=== PATIENT | male | born 1985 | race Asian ===

== ENCOUNTER 2016-12-03 14:26 | Emergency (ER) | payer OTHER ==
[2016-12-03] MEDS ORDERED: ACETAMINOPHEN 325 MG TABLET PO STA (15:11)
[2016-12-03] MEDS ORDERED: IBUPROFEN 400 MG TABLET PO STA (15:11)
[2016-12-03] MEDS ORDERED: IBUPROFEN 400 MG TABLET PO ONE (15:12)
[2016-12-03] MEDS ORDERED: ACETAMINOPHEN 325 MG TABLET PO ONE (15:12)
== END 2016-12-03 16:01 | disposition home or self-care (01) ==
DX: S30.0XXA Contusion of lower back and pelvis, initial encounter (principal); V00.311A Fall from snowboard, initial encounter; Y93.23 Activity, snow (alpine) (downhill) skiing, snowboarding, sledding, tobogganing and snow tubing; Y92.830 Public park as the place of occurrence of the external cause
CPT/HCPCS: 72100; 72170; 99282; 99283; A9270

== ENCOUNTER 2017-05-12 07:14 | Emergency (ER) | payer OTHER ==
--- NOTE | 2017-05-12 07:51 | ED Physician Documentation ---
PD HPI ABD PAIN - Stated complaint Stated Complaint: ABD PAIN - Chief complaint Chief Complaint: Abd Pain - History obtained from History obtained from: Patient - History of Present Illness Timing - onset: How many days ago (3) Timing - duration: Days (3) Timing - details: Gradual onset Pain level max: 8 Pain level now: 8 Quality: Aching, Pain Location: LLQ Radiation: Other (non-radiating) Improved by: Laying still Worsened by: Moving, Palpation Associated symptoms: Constipation (states was constipated, took a laxative and had a good BM). No: Fever, Nausea, Vomiting, Hematemesis, Diarrhea, Melena, Hematochezia, Dysuria, Hematuria, Chest pain, Dizzy, Near syncope / syncope Similar symptoms before: Has not had sx before Recently seen: Not recently seen Review of Systems Constitutional: denies: Fever, Chills Throat: denies: Sore throat Cardiac: denies: Chest pain / pressure Respiratory: denies: Cough GI: denies: Nausea, Vomiting, Hematemesis, Bloody / black stool : denies: Dysuria, Testicular pain, Testicular mass Skin: denies: Rash Musculoskeletal: denies: Neck pain, Back pain Neurologic: denies: Generalized weakness PD PAST MEDICAL HISTORY - Past Medical History Past Medical History: No - Past Surgical History Past Surgical History: No - Present Medications Home Medications: Ambulatory Orders Medication Instructions Recorded Confirmed Hydrocodone/Acetaminophen 1 - 2 each PO Q6H PRN #14 tablet 05/12/17 [Hydrocodon-Acetaminophen 5-325] - Allergies Allergies/Adverse Reactions: Allergies Allergy/AdvReac Type Severity Reaction Status Date / Time No Known Drug Allergies Allergy Verified 12/03/16 14:33 - Social History Does the pt smoke?: No Smoking Status: Never smoker - Immunizations Immunizations are current?: Yes PD ED PE NORMAL - Vitals Vital signs reviewed: Yes - General General: Alert and oriented X 3, No acute distress - HEENT HEENT: Moist mucous membranes - Neck Neck: Supple, no meningeal sign - Cardiac Cardiac: RRR - Respiratory Respiratory: No respiratory distress, Clear bilaterally - Abdomen Abdomen: Soft, Non distended, Other (TTP LLQ, no peritoneal signs) - Back Back: No CVA TTP, No spinal TTP - Derm Derm: Warm and dry - Neuro Neuro: Alert and oriented X 3 - Psych Psych: Normal mood, Normal affect Results - Vitals Vitals: Vital Signs - 24 hr 05/12/17 07:25 Temperature 36.7 C Heart Rate 92 Respiratory 16 Rate Blood Pressure 141/81 H O2 Saturation 99 Oxygen O2 Source Room air - Labs Labs: Laboratory Tests 05/12/17 05/12/17 07:58 07:58 WBC 8.2 RBC 5.02 Hgb 14.8 Hct 44.4 MCV 88.3 MCH 29.5 MCHC 33.5 RDW 13.4 Plt Count 449 MPV 7.0 L Neut # 5.2 Lymph # 1.8 [place] # 0.8 Eos # 0.3 Baso # 0.0 Absolute Nucleated RBC 0.00 Nucleated RBCs 0.0 Sodium 140 Potassium 4.4 Chloride 103 Carbon Dioxide 29 Anion Gap 8.0 BUN 16 Creatinine 1.1 Estimated GFR (MDRD) 77 L Glucose 90 Calcium 9.1 Total Bilirubin 0.8 AST 23 ALT 22 Alkaline Phosphatase 78 Total Protein 7.7 Albumin 4.6 Globulin 3.1 Albumin/Globulin Ratio 1.5 Lipase 24 - Rads (name of study) CT abdomen and pelvis Radiology: Prelim report reviewed, EMP read contemporaneously, See rad report ( Epiploic appendagitis in the left lower quadrant adjacent to the sigmoid colon ) PD MEDICAL DECISION MAKING - ED course Complexity details: reviewed results, re-evaluated patient, considered differential, d/w patient ED course: Patient is a 32-year-old male with left lower quadrant abdominal pain. Found to have epiploic appendage otitis in the left lower quadrant. He is very well- appearing, nontoxic. Afebrile. Declines pain medication here. Will prescribe pain medication for home. Tolerating p.o. without difficulty. Patient counseled regarding signs and symptoms for which I believe and urgent re- evaluation would be necessary. Patient with good understanding of and agreement to plan and is comfortable going home at this time This document was made in part using voice recognition software. While efforts are made to proofread this document, sound alike and grammatical errors may occur. Departure - Departure Disposition: 01 Home, Self Care Clinical Impression: Epiploic appendagitis Condition: Good Instructions: ED Abdominal Pain Unkn Cause Follow-Up: your,doctor within 1 week [Other] Prescriptions: Hydrocodone/Acetaminophen [Hydrocodon-Acetaminophen 5-325] 1 - 2 each PO Q6H PRN #14 tablet PRN Reason: pain Comments: Return if you worsen. Do not drink alcohol or drive while on narcotic pain medicine. Note that many narcotic pain relievers also contain tylenol/acetaminophen. Please ensure that your total dose of acetaminophen from all sources does not exceed 3 grams (3000mg) per day. You may constipated on this medication, take a stool softener such as "Colace" twice a day while you are on it. Also recommend a [id number] laxative such as senna or MiraLAX any day that you do not have a bowel movement. If you received narcotic pain medication in the emergency department, do not drive or operate machinery for the next 24 hours.
[2017-05-12 08:04] LABS: BASOPHILS % (AUTO) 0.5 %; EOSINOPHILS # (AUTO) 0.3 10^3/uL (0.0-0.7); EOSINOPHILS % (AUTO) 3.9 %; HCT - HEMATOCRIT 44.4 % (42.0-52.0); HGB - HEMOGLOBIN 14.8 g/dL (14.0-18.0); LYMPHOCYTES # (AUTO) 1.8 10^3/uL (1.5-3.5); LYMPHOCYTES % (AUTO) 21.8 %; MEAN CORPUSCULAR HEMOGLOBIN 29.5 pg (27.0-31.0); MEAN CORPUSCULAR HGB CONC 33.5 g/dL (32.0-36.0); MEAN CORPUSCULAR VOLUME 88.3 fL (80.0-94.0); MONOCYTES # (AUTO) 0.8 10^3/uL (0.0-1.0); NEUTROPHILS # (AUTO) 5.2 10^3/uL (1.5-6.6); NEUTROPHILS % (AUTO) 63.8 %; RED BLOOD COUNT 5.02 10^6/uL (4.70-6.10); RED CELL DISTRIBUTION WIDTH 13.4 % (12.0-15.0); UNCORRECTED WHITE BLOOD COUNT 8.2 x10^3/uL; WHITE BLOOD COUNT 8.2 x10^3/uL (4.8-10.8)
[2017-05-12 08:17] LABS: ALBUMIN/GLOBULIN RATIO 1.5 (1.0-2.2); BILIRUBIN,TOTAL 0.8 mg/dL (0.2-1.0); CALCIUM 9.1 mg/dL (8.5-10.3); CREATININE 1.1 mg/dL (0.6-1.2); POTASSIUM 4.4 mmol/L (3.5-5.0); TOTAL PROTEIN 7.7 g/dL (6.7-8.2)
[2017-05-12] MEDS ORDERED: IOPAMIDOL-300 100 ML VIAL IVP ONE (08:33)
--- NOTE | 2017-05-12 09:04 | CT Preliminary Report ---
Exam: CT Abdomen/Pelvis W/ IMPRESSION: Epiploic appendagitis in the left lower quadrant adjacent to the sigmoid colon [facility] SITE ID: [id number]
--- NOTE | 2017-05-12 09:06 | CT Report ---
EXAM: CT ABDOMEN AND PELVIS EXAM DATE: 05/12/2017 08:33 AM. CLINICAL HISTORY: LLQ abd pain. COMPARISONS: None. TECHNIQUE: Routine helical CT imaging was performed through the abdomen and pelvis. IV contrast: 100 mL Isovue 300. Enteric contrast: No. Reconstructions: Coronal and sagittal. In accordance with CT protocol optimization, one or more of the following dose reduction techniques w ere utilized for this exam: automated exposure control, adjustment of mA and/or KV based on patient s ize, or use of iterative reconstructive technique. FINDINGS: Lung Bases: Unremarkable. Liver: Normal. No masses. Gallbladder/Bile Ducts: Unremarkable. Spleen: Normal. Incidental splenule. Pancreas: Normal. Adrenal Glands: Normal. Kidneys: Normal. No masses or hydronephrosis. Peritoneal Cavity/Bowel: Fat-containing region with central dot and rim and surrounding inflammation and peritoneal thickening seen adjacent to the proximal sigmoid colon, series 4, axial image 63, cons istent with epiploic appendagitis. Normal appendix. Pelvic Organs: Normal. The bladder and visualized pelvic organs are within normal limits. Vasculature: No aneurysms or other significant abnormality. Bones: No significant abnormality. Other: Rectus diastases. IMPRESSION: Epiploic appendagitis in the left lower quadrant adjacent to the sigmoid colon [facility] Referring Provider Line: [phone] SITE ID: [id number]
[2017-05-12 10:40] VITALS: BP 130/64
== END 2017-05-12 09:25 | disposition home or self-care (01) ==
LOC: ED 07:14
DX: K63.89 Other specified diseases of intestine (principal)
CPT/HCPCS: 36415; 74177; 80053; 83690; 85025; 99283; 99284; Q9967